=== PATIENT | male | born 1960 | race Caucasian/White ===

== ENCOUNTER 2022-10-24 11:46 | Emergency (ER) | payer BC, SELFPAY ==
[2022-10-24] VITALS (33 sets, daily range): BP systolic 106–178; BP diastolic 67–118; PULSE 59–152; RESP 20; TEMP 36.9; O2SAT 94–99; BMI 25.1
--- NOTE | 2022-10-24 12:19 | ED.ARRPALP ---
HPI - Arrhythmia/Palpitations General Time Seen by Provider: 12:19 Date Seen: 10/24/22 Chief Complaint: Arrhythmia/Palpitations Stated Complaint: Heart flutter Time Seen by Provider: 10/24/22 12:19 Source: patient, RN notes reviewed and old records reviewed Mode of arrival: ambulatory Limitations: no limitations History of Present Illness HPI narrative: Patient is a very pleasant well-spoken 62-year-old gentleman with history of hyperlipidemia and hypertension currently on medications who comes to the emergency room with complaints of rapid heart rate. Patient notes the onset of the flipping and flopping in his chest and rapid heart rate last evening. He states it was hard to sleep because of it. This morning he was walking up stairs and had some shortness of breath when he got to the top. Shortness of breath continues when he is doing a lot of talking but he states that he was able to ambulate in without any difficulty. Patient notes COVID infection at the end of September. It felt like a bad cold. He did have some cough production but it was always clear sputum. He has been noticing that he is having a harder time sleeping lately and has had some increased snoring. He denies lower extremity edema personal or family history of DVT. He has not had no nausea. He denies chest pain at this time. Upon further discussion patient did have Holter monitor this summer as he was having similar symptoms. He states at that time there was no finding of atrial fibrillation and did not need a pacemaker. He does note that he has had this occasionally recently but has not sought any attention as he did not feel that it was significant or stopping him from doing his normal activities. Related Data Previous Rx's Medication Instructions Recorded apixaban 5 mg tablet (Eliquis) 5 mg PO BID #60 tabs 10/24/22 metoprolol tartrate 25 mg tablet 12.5 mg PO BID #30 tabs 10/24/22 metoprolol tartrate 25 mg tablet 25 mg PO BID #60 tabs 10/24/22 Allergies Allergy/AdvReac Type Severity Reaction Status Date / Time No Known Drug Allergies Allergy Verified 10/24/22 12:06 Review of Systems Status of ROS: Reports: 10 or more systems reviewed and unremarkable except as noted in History and below Const: Denies: fever, chills or fatigue ENMT: Denies: throat pain or difficulty swallowing Cardio: Reports: palpitations, lightheadedness, shortness of breath with exertion and shortness of breath when lying down; Denies: chest pain, edema or swelling of feet/ankles Resp: Reports: shortness of breath GI: Denies: abdominal pain, nausea, vomiting or difficulty swallowing Musculo: Denies: back pain Neuro: Denies: headache Endo: Denies: fatigue PFSH PFSH Social History Smoking Status: Never smoker Do you use any of these nicotine containing products: None Second hand tobacco smoke exposure: No How often do you have a drink containing alcohol: 4 or more times a week How many standard drinks containing alcohol do you have on a typical day: 1 or 2 How often do you have six or more drinks on one occasion: Monthly AUDIT-C Alcohol total score: 6 Non-prescribed substance use: denies use service: No Exam Narrative: Exam Narrative: Patient is alert and oriented. Very pleasant gentleman. No acute distress. EOM is full pupils equal round reactive. Neck is supple without lymphadenopathy Heart with a tachycardic rate at this time normal rhythm lungs are clear in all lung beckwith abdomen soft nontender. Lower extremities without edema or calf tenderness. Moving all extremities. Const: Vital Signs, click to edit/add: Vital Signs - 24 hr 10/24/22 12:06 10/24/22 12:32 10/24/22 12:18 Temperature 98.5 F Pulse Rate 100 Pulse Rate [Apical ] 152 H Respiratory Rate 20 Blood Pressure Blood Pressure [Le ft Upper Arm] 178/118 H Pulse Oximetry 96 96 94 Oxygen Delivery Me thod Room Air 10/24/22 12:32 10/24/22 13:03 10/24/22 13:04 Temperature Pulse Rate 118 H Pulse Rate [Apical ] Respiratory Rate Blood Pressure 163/100 H 109/90 H Blood Pressure [Le ft Upper Arm] Pulse Oximetry Oxygen Delivery Me thod 10/24/22 13:15 10/24/22 13:30 10/24/22 13:32 Temperature Pulse Rate 76 92 76 Pulse Rate [Apical ] Respiratory Rate Blood Pressure 106/80 Blood Pressure [Le ft Upper Arm] Pulse Oximetry 96 95 96 Oxygen Delivery Me thod 10/24/22 13:56 10/24/22 14:00 10/24/22 14:02 Temperature Pulse Rate 91 95 90 Pulse Rate [Apical ] Respiratory Rate Blood Pressure 131/88 Blood Pressure [Le ft Upper Arm] Pulse Oximetry 95 97 99 Oxygen Delivery Me thod 10/24/22 14:15 10/24/22 14:30 10/24/22 14:32 Temperature Pulse Rate 77 89 85 Pulse Rate [Apical ] Respiratory Rate Blood Pressure 129/79 Blood Pressure [Le ft Upper Arm] Pulse Oximetry 96 94 96 Oxygen Delivery Me thod 10/24/22 14:45 10/24/22 15:00 10/24/22 15:01 Temperature Pulse Rate 82 90 88 Pulse Rate [Apical ] Respiratory Rate Blood Pressure 118/67 Blood Pressure [Le ft Upper Arm] Pulse Oximetry 95 95 97 Oxygen Delivery Me thod 10/24/22 15:15 Temperature Pulse Rate 75 Pulse Rate [Apical ] Respiratory Rate Blood Pressure Blood Pressure [Le ft Upper Arm] Pulse Oximetry 96 Oxygen Delivery Me thod Documenting provider has reviewed patient's vital signs: yes Course Course Hospital Course: Patient presents in atrial fibrillation with RVR at a rate of 159. At this time will give him aspirin 324 mg, Cardizem 10 mg IV, check labs to include a CBC, comprehensive, D-dimer, troponin, proBNP, urinalysis. Will give 1 L of normal saline. Will also check magnesium. Given patient's history of ?previous fluttering and chest? I do not think that we are in a position where we would be safely able to cardiovert him unless it was an emergent situation. Will try to slow his heart rate down with Cardizem at this time. Reevaluation(s) Reevaluation #1: Improvement of heart rate to 100s after Cardizem bolus. Will initiate 2nd bolus and placed on drip to bring heart rate below 100. Patient notes he is feeling better but is still experiencing some irregular heartbeat. Will obtain 2nd EKG. Reevaluation #2: Patient has successfully tapered off of Cardizem drip after being given metoprolol p.o. per cardiology suggestion. He spontaneously converted to a sinus rhythm prior to discharge. He is feeling much better. Consultations Consultation #1: At the pleasure of speaking with public improvement inspector from [facility] Dr. Ng. This time I do relate to him I do not feel comfortable with a cardioversion given the fact that he does describe intermittent irregular heartbeat. While this rapid rate seemed to start last night I cannot depend on the fact that this is truly new onset. Of course I would be worried about clot formation. Therefore we will attempt rate control, initiation of anticoagulant and follow-up as an outpatient with Cardiology. Button Station Worker suggest the use of metoprolol 25 mg p.o. b.i.d.. His 1st dose is given to him at this time. Vital Signs Vital signs: Initial Vital Signs Temperature 98.5 F 10/24/22 12:06 Temperature Source Temporal Artery Scan 10/24/22 12:06 Pulse Rate 152 H 10/24/22 12:06 Pulse Rhythm 10/24/22 12:06 Respiratory Rate 20 10/24/22 12:06 Blood Pressure 178/118 H 10/24/22 12:06 Blood Pressure Mean 138 10/24/22 12:06 Blood Pressure Position Supine 10/24/22 12:06 Pulse Oximetry 96 10/24/22 12:06 Oxygen Delivery Method 10/24/22 12:06 Vital Signs Temperature 98.5 F 10/24/22 12:06 Pulse Rate 152 H 10/24/22 12:06 Respiratory Rate 20 10/24/22 12:06 Blood Pressure 178/118 H 10/24/22 12:06 Pulse Oximetry 96 10/24/22 12:06 Oxygen Delivery Method 10/24/22 12:06 Temperature 98.5 F 10/24/22 12:06 Pulse Rate 75 10/24/22 15:15 Respiratory Rate 20 10/24/22 12:06 Blood Pressure 118/67 10/24/22 15:01 Pulse Oximetry 96 10/24/22 15:15 Oxygen Delivery Method 10/24/22 12:06 MDM - Arrhythmia/Palpitations MDM Narrative Medical decision making narrative: 1. Atrial fibrillation with RVR-this has resolved. Cardizem IV bolus x2 with a drip and then p.o. metoprolol successfully converted this gentleman. He is feeling much better. Troponin was negative x2. chest x-ray reassuring and COVID/influenza negative. Patient is feeling much better. At this time given history of intermittent symptoms since last summer I do suggest use of anticoagulant and cardiology suggest Eliquis. Patient's 1st dose is given here in the ED 5 mg p.o.. Prior to giving this we did ensure that patient has had no previous history of GI bleed, recent trauma, intracranial bleeding. No history of ulcers. He is advised not use alcohol while using this medication. I did attempt to call pharmacy to see if we could ascertain whether Xarelto or Eliquis would be covered by his insurance. Either 1 would need a pre approval and I am not able to do that today. Thus, a 2nd dose was given for tomorrow morning for him to take home. I did send in prescription for Eliquis. If pre approval l is needed he will need to go through his primary clinic. He may be in a situation where he has to pay for a week of medication while awaiting the preauthorization. Metoprolol 25 mg p.o. b.i.d. is also given to patient. He may need to discontinue this if heart rate goes too low but at this time heart rate is in 60s and he is feeling well. If he takes his pulse and his heart rate was below 70 and regular he can skip dosing. Further prescription sent to [facility] a pharmacy 2. Disposition-home at this time. Push fluids. Return as needed. Follow-up with primary MD for scheduling of echocardiogram as well as Cardiology consult. Medical Records Attestation: I reviewed the patient's medical records. Lab Data Attestation: I reviewed the patient's lab results. Labs: Lab Results 10/24/22 10/24/22 10/24/22 Range/Units 12:25 12:25 12:25 WBC 9.14 (4.50-11.00) K/uL RBC 5.18 (4.30-5.90) m/uL Hgb 16.0 (13.5-17.5) gm/dL Hct 47.3 (37.0-53.0) % MCV 91 (80-100) fL MCH 31 (26-34) pg MCHC 34 (32-36) gm/dL RDW Coeff of Lucila 12.4 (11.5-15.5) % Plt Count 297 (140-440) K/uL Neut % (Auto) 61.0 (42.0-72.0) % Lymph % (Auto) 30.2 (20-44) % [place] % (Auto) 7.8 (0.0-11.0) % Eos % (Auto) 0.7 (0.0-7.0) % Baso % (Auto) 0.2 (0.0-3.0) % Neut # (Auto) 5.58 (1.7-7.0) K/uL Lymph # (Auto) 2.76 (0.90-2.90) K/uL [place] # (Auto) 0.70 (0.00-0.90) K/UL Eos # (Auto) 0.06 (0.00-0.50) K/uL Baso # (Auto) 0.02 (0.00-0.30) K/uL D-Dimer Quant (PE/DVT) < 0.27 (0.00-0.50) ug/ml Sodium 137 (135-149) mmol/L Potassium 3.9 (3.6-5.1) mmol/L Chloride 104 (96-114) mmol/L Carbon Dioxide 25 (20-32) mmol/L BUN 28 (7-30) mg/dL Creatinine 0.9 (0.5-1.5) mg/dL Estimated Creat Clear 74.63 Estimated GFR 95 ml/min Glucose 101 (60-115) mg/dL Calcium 9.7 (8.4-10.6) mg/dL Magnesium 2.0 (1.5-2.6) mg/dL Total Bilirubin 0.7 (0.1-1.5) mg/dL AST 27 (12-35) U/L ALT 41 (4-50) U/L Alkaline Phosphatase 95 (40-150) U/L Troponin I < 0.01 L (0.01-0.04) ng/mL C-Reactive Protein < 0.5 L (0.5-1.0) mg/dL NT-Pro-B Natriuret Pep 1110 pg/mL Total Protein 7.2 (6.0-8.3) g/dL Albumin 4.5 (3.3-5.0) g/dL Urine Color (Yellow) Urine Appearance (Clear) Urine pH (5.0-8.5) Ur Specific [place] (1.000-1.030) Urine Protein (Negative) Urine Glucose (UA) (Negative) Urine Ketones (Negative) Urine Blood (Negative) Urine Nitrite (Negative) Urine Bilirubin (Negative) Urine Urobilinogen (0.2-1.0) Ur Leukocyte Esterase (Negative) Urine RBC (0-2) Urine WBC (0-5) Urine WBC Clumps (None) Ur Squamous Epith Cells (None-Few) Urine Bacteria (None) SARS-CoV-2 (PCR) (Negative) Influenza Type A (PCR) (Negative) Influenza Type B (PCR) (Negative) RSV (PCR) (Negative) POC Troponin I (0.01-0.04) ng/ml 10/24/22 10/24/22 10/24/22 Range/Units 12:29 13:30 15:40 WBC (4.50-11.00) K/uL RBC (4.30-5.90) m/uL Hgb (13.5-17.5) gm/dL Hct (37.0-53.0) % MCV (80-100) fL MCH (26-34) pg MCHC (32-36) gm/dL RDW Coeff of Lucila (11.5-15.5) % Plt Count (140-440) K/uL Neut % (Auto) (42.0-72.0) % Lymph % (Auto) (20-44) % [place] % (Auto) (0.0-11.0) % Eos % (Auto) (0.0-7.0) % Baso % (Auto) (0.0-3.0) % Neut # (Auto) (1.7-7.0) K/uL Lymph # (Auto) (0.90-2.90) K/uL [place] # (Auto) (0.00-0.90) K/UL Eos # (Auto) (0.00-0.50) K/uL Baso # (Auto) (0.00-0.30) K/uL D-Dimer Quant (PE/DVT) (0.00-0.50) ug/ml Sodium (135-149) mmol/L Potassium (3.6-5.1) mmol/L Chloride (96-114) mmol/L Carbon Dioxide (20-32) mmol/L BUN (7-30) mg/dL Creatinine (0.5-1.5) mg/dL Estimated Creat Clear Estimated GFR ml/min Glucose (60-115) mg/dL Calcium (8.4-10.6) mg/dL Magnesium (1.5-2.6) mg/dL Total Bilirubin (0.1-1.5) mg/dL AST (12-35) U/L ALT (4-50) U/L Alkaline Phosphatase (40-150) U/L Troponin I (0.01-0.04) ng/mL C-Reactive Protein (0.5-1.0) mg/dL NT-Pro-B Natriuret Pep pg/mL Total Protein (6.0-8.3) g/dL Albumin (3.3-5.0) g/dL Urine Color Yellow (Yellow) Urine Appearance Clear (Clear) Urine pH 5.5 (5.0-8.5) Ur Specific [place] 1.020 (1.000-1.030) Urine Protein Negative (Negative) Urine Glucose (UA) Negative (Negative) Urine Ketones Negative (Negative) Urine Blood Negative (Negative) Urine Nitrite Negative (Negative) Urine Bilirubin Negative (Negative) Urine Urobilinogen 0.2 (0.2-1.0) Ur Leukocyte Esterase Negative (Negative) Urine RBC 0-2 (0-2) Urine WBC 0-2 (0-5) Urine WBC Clumps None (None) Ur Squamous Epith Cells None (None-Few) Urine Bacteria None (None) SARS-CoV-2 (PCR) Negative SARS-CoV-2 (Negative) Influenza Type A (PCR) Negative PCR FLU A (Negative) Influenza Type B (PCR) Negative PCR FLU B (Negative) RSV (PCR) Negative PCR RSV (Negative) POC Troponin I 0.01 (0.01-0.04) ng/ml Imaging Data Chest x-ray: Attestation: I have reviewed the pertinent imaging results. ECG Data Attestation: I personally reviewed and interpreted this ECG as follows: ECG interpretation date: 10/24/22 Interpretation: 1. EKG 1. By my read shows atrial fibrillation with RVR at a rate of 159. Does appear to be some downward sloping of the ST segment especially in the inferior lateral leads. EKG 2. By my read shows atrial fibrillation at a rate of 81. Resolution of the downward sloping ST segments in all leads 6 with the exception of 3. No acute ST or T-wave changes are noted. 3. EKG 3. By my read shows sinus rhythm at a rate of [address] or T-wave changes. Discharge Plan Discharge Clinical Impression: Atrial fibrillation Patient Disposition: Home, Self-Care Condition: Improved Additional Instructions: Your 1st dose of Eliquis, the blood thinner was given here in the emergency room this evening. He 2nd dose will be provided to you for use tomorrow morning. Have sent the prescription for Eliquis to the pharmacy. I am psoriatic cannot provide another dose for tomorrow night. Unfortunately, you may have to initially pay for doses until you can get approval by her pharmacy or insurance. Metoprolol was the medication we use to decrease her heart rate. You received that earlier today. Your next dose will be tomorrow morning. We will send a dose home with you. This medication was also sent to the [facility] pharmacy for pickup. I would advise to Avoid caffeine at this time. Keep well hydrated. Return to the emergency room for sustained heart rate above 100. You will need to follow-up with your primary MD to be set up for an echocardiogram and Cardiology consult. Prescriptions: New metoprolol tartrate 25 mg tablet 12.5 mg PO BID Qty: 30 2RF Eliquis 5 mg tablet 5 mg PO BID Qty: 60 2RF metoprolol tartrate 25 mg tablet 25 mg PO BID Qty: 60 2RF Follow Up/Referrals: Manish Dick MD [Primary Care Provider] - Stand Alone Forms: [employer] Info Instructions
--- NOTE | 2022-10-24 12:29 | CRLHL7_ITS ---
For Patients: As a result of the Cures Act, medical imaging exams and procedure reports are released immediately into your electronic medical record. You may view this report before your referring provider. If you have questions, please contact your health care provider. INDICATION: Atrial fibrillation. TECHNIQUE: Chest 1 views. COMPARISON: None. FINDINGS: Cardiovascular and mediastinum: Heart size and vasculature are normal in caliber and appearance. Lungs and pleural spaces: Lungs are clear. No sign of infiltrate or mass. No sign of pleural effusion. No pneumothorax. Bones and soft tissues: No significant findings. IMPRESSION: No acute or significant findings. Dictated by Harman Velasquez MD @ 10/24/2022 1:51:22 PM (Electronically Signed)
[2022-10-24 12:54] LABS: Basophils Absolute Auto 0.02 K/uL (0.00-0.30); Basophils Percent Auto 0.2 % (0.0-3.0); Eosinophils Absolute Auto 0.06 K/uL (0.00-0.50); Eosinophils Percent Auto 0.7 % (0.0-7.0); Hematocrit 47.3 % (37.0-53.0); Immature Granulocytes Abs Auto 0.01 K/uL (0.00-0.30); Immature Granulocytes Pct Auto 0.1 %; Lymphocytes Absolute Auto 2.76 K/uL (0.90-2.90); Lymphocytes Percent Auto 30.2 % (20-44); Mean Corpuscular HGB Conc 34 gm/dL (32-36); Mean Corpuscular Hemoglobin 31 pg (26-34); Mean Corpuscular Volume 91 fL (80-100); Monocytes Percent Auto 7.8 % (0.0-11.0); Neutrophils Absolute Auto 5.58 K/uL (1.7-7.0); Platelet Count* 297 K/uL (140-440); RDW Coefficient of Variation % 12.4 % (11.5-15.5); Red Blood Count 5.18 m/uL (4.30-5.90); White Blood Count* 9.14 K/uL (4.50-11.00)
[2022-10-24] MEDS: 0.9 % SODIUM CHLORIDE 1000 ml 1,000 ML IV (12:56)
[2022-10-24] MEDS: ASPIRIN 81 MG TAB.CHEW 324 MG PO (12:58)
[2022-10-24 13:00] LABS: Slide Review Reflex No
[2022-10-24] MEDS: dilTIAZem 5 MG/ML inj 10 MG IVP ×2 (13:03→14:54)
[2022-10-24 13:12] LABS: Albumin* 4.5 g/dL (3.3-5.0); Chloride* 104 mmol/L (96-114); Sodium* 137 mmol/L (135-149)
[2022-10-24 13:13] LABS: D Dimer Quantitative* < 0.27 ug/ml (0.00-0.50); Potassium* 3.9 mmol/L (3.6-5.1)
[2022-10-24 13:15] LABS: Creatinine* 0.9 mg/dL (0.5-1.5); Est. Creatinine Clearance* 74.63; Estimated Glomerular Filt Rate 95 ml/min
[2022-10-24 13:16] LABS: Alanine Aminotransferase* 41 U/L (4-50); Alkaline Phosphatase* 95 U/L (40-150); Aspartate Amino Transferase* 27 U/L (12-35); Bilirubin Total* 0.7 mg/dL (0.1-1.5); Blood Urea Nitrogen* 28 mg/dL (7-30); Carbon Dioxide* 25 mmol/L (20-32); Glucose* 101 mg/dL (60-115); Total Protein* 7.2 g/dL (6.0-8.3)
[2022-10-24 13:17] LABS: Calcium* 9.7 mg/dL (8.4-10.6)
[2022-10-24 13:21] LABS: C Reactive Protein* < 0.5 mg/dL (0.5-1.0)
[2022-10-24 13:30] LABS: PCR FLU A Negative PCR FLU A (Negative); PCR FLU B Negative PCR FLU B (Negative); PCR RSV Negative PCR RSV (Negative)
[2022-10-24 13:39] LABS: NT Pro B Type NatriureticPept* 1110 pg/mL; Troponin I* < 0.01 ng/mL (0.01-0.04)
[2022-10-24 13:52] LABS: SARS PCR* Negative SARS-CoV-2 (Negative)
[2022-10-24 14:05] LABS: Appearance Urine Clear (Clear); Bilirubin Urine Negative (Negative); Blood Urine Negative (Negative); Color Urine Yellow (Yellow); Glucose Urine Negative (Negative); Ketones Urine Negative (Negative); Leukocyte Esterase Urine Negative (Negative); Nitrite Urine Negative (Negative); Protein Urine Negative (Negative); Urobilinogen Urine 0.2 (0.2-1.0); pH Urine 5.5 (5.0-8.5)
[2022-10-24 14:29] LABS: RBC Urine 0-2 (0-2); WBC Urine 0-2 (0-5)
[2022-10-24] MEDS: dilTIAZem HCL 125 MG in 0.9 % SODIUM CHLORIDE 100 ml 100 ML 10 MG IVPB (15:12)
[2022-10-24] MEDS: METOPROLOL TARTRATE 25 MG TABLET PO ×2 (15:16→18:23)
[2022-10-24 16:17] LABS: Troponin, Point-of-Care* 0.01 ng/ml (0.01-0.04)
--- NOTE | 2022-10-24 16:38 | ED.NURSE ---
diltiazem has been decreased every 15 min by 2.5 mg/hr.
--- NOTE | 2022-10-24 16:50 | ED.NURSE ---
converted. was noted to be in sinus rhythm. hr was 53. dr damon was informed. ekg repeated.
[2022-10-24] MEDS: APIXABAN 5 MG TABLET PO ×2 (17:49→18:23)
--- NOTE | 2022-10-24 18:23 | ED.NURSE ---
was given dose for eliquis and metoprolol to use in the am.
--- NOTE | 2022-10-25 00:05 | ED.NURSE ---
chart accessed due fax received from [facility] with a rejection notice for eliquis rx requiring prior authorization. Dr. Morocho consulted and a plan to contact PCP for prior auth has been communicated with the patient.
== END 2022-10-24 18:22 | disposition home or self-care (01) ==
PROVIDERS: Emergency Provider Family Medicine; PCP Surgery
DX: I48.91 Unspecified atrial fibrillation (principal)
CPT/HCPCS: 36415; 71045; 80053; 81001; 83735; 83880; 84484; 85025; 85379; 86140; 87502; 87634; 87635; 93005; 94761; 96361; 96365; 96366; 96376; 99285; A9270; J3490; J7030